=== PATIENT | male | born 1995 | race Two or more races ===

== ENCOUNTER 2025-08-23 09:00 | Day surgery (SDC) | payer OTHER ==
[2025-08-15 11:14] VITALS: BP 118/75
[~2025-08-23] VITALS: Ht 172.7 cm; Wt 108.9 kg
[2025-08-23] MEDS ORDERED: METRONIDAZOLE/SODIUM CHLORIDE 500 MG/100 ML PIGGYBACK IV ONE (09:35)
[2025-08-23] MEDS ORDERED: CEFTRIAXONE SODIUM 2,000 MG VIAL ONE (09:35)
[2025-08-23] MEDS ORDERED: BUPIVACAINE HCL/MPF 0.5% 30ML VIAL ONE (09:51)
[2025-08-23] MEDS ORDERED: HEMOSTATIC MATRIX WITH THROMBIN KIT TOP ONE (09:51)
[2025-08-23] MEDS ORDERED: DIBUCAINE 30 GM TUBE ONE (09:51)
[2025-08-23] MEDS ORDERED: LIDOCAINE HCL 1%/EPINEPHRINE 20ML VIAL IJ ONE (09:51)
[2025-08-23] MEDS ORDERED: INTESTINEX680 M1 PO (12:32)
[2025-08-23] MEDS ORDERED: CELECOXIB200 MG PO (12:32)
[2025-08-23] MEDS ORDERED: NEURONTIN300 MG PO (12:32)
[2025-08-23] MEDS ORDERED: HIBICLENS118 ML TOP (12:32)
[2025-08-23] MEDS ORDERED: PERCOCET 5-3251 EACH PO (12:33)
[2025-08-23] MEDS ORDERED: TAMSULOSIN HCL 0.4 MG CAP PO ONE ×2 (16:20)
== END 2025-08-23 16:55 | disposition home or self-care (01) ==
LOC: CIR.AMB 09:00
PROVIDERS: ATTEND Surgery
DX: K60.321 Anal fistula, complex, initial (principal); Z91.013 Allergy to seafood